=== PATIENT | female | born 1955 | race Two or more races ===

== ENCOUNTER 2023-01-29 00:12 | Inpatient (IN) | payer MEDICAID ==
[~2023-01-29] VITALS: Ht 157.5 cm; Wt 54.5 kg
[2023-01-29] MEDS ORDERED: ONDANSETRON HCL/PF 4 MG/2 ML VIAL ONE (01:48)
[2023-01-29] MEDS ORDERED: MORPHINE SULFATE INJ 4 MG/ML DISP.SYRIN ONE (01:48)
[2023-01-29] MEDS ORDERED: ONDANSETRON HCL/PF 4 MG/2 ML VIAL IVP ONE (02:00)
[2023-01-29] MEDS ORDERED: IV NS 0.9% 1,000 ML BAG IV ONE (02:00)
[2023-01-29] MEDS ORDERED: MORPHINE SULFATE INJ 2 MG/ML DISP.SYRIN IV ONE (02:00)
[2023-01-29 02:05] LABS: BASOPHILS % (AUTO) 0.2 % (0.0-2.0); EOSINOPHILS # (AUTO) 0.1 K/uL (0.0-0.7); EOSINOPHILS % (AUTO) 1.3 % (0.0-6.0); HEMATOCRIT 41 % (33-45); HEMOGLOBIN 13.8 g/dL (11.5-14.8); LYMPHOCYTES # (AUTO) 1.6 K/uL (0.8-4.8); LYMPHOCYTES % (AUTO) 17.8 % (20.0-44.0); MEAN CORPUSCULAR HEMOGLOBIN 30 PG (26.0-33.0); MEAN CORPUSCULAR HGB CONC 34 g/dl (31.0-36.0); MEAN CORPUSCULAR VOLUME 88 fL (82-100); MONOCYTES # (AUTO) 0.6 K/uL (0.1-1.30); MONOCYTES % (AUTO) 6.5 % (2.0-12.0); NEUTROPHILS # (AUTO) 6.8 K/uL (1.8-8.9); NEUTROPHILS % (AUTO) 74.2 % (43.0-81.0); PLATELET COUNT (AUTO) 320 K/uL (150-450); RED BLOOD CELL COUNT(AUTO) 4.69 MIL/uL (4.0-5.2); RED CELL DISTRIBUTION WIDTH 13.3 % (11.5-15.0); WHITE BLOOD COUNT (AUTO) 9.2 K/uL (4.3-11.0)
[2023-01-29 02:19] LABS: INR 1.01 (0.91-1.10); PARTIAL THROMBOPLASTIN TIME 29.7 SEC (24.3-34.3); PROTHROMBIN TIME 10.7 SECS (9.2-11.1)
[2023-01-29 02:20] LABS: CALCIUM, SERUM 9.4 mg/dL (8.5-10.1); CARBON DIOXIDE 25 mmol/L (21-32); CHLORIDE 102 mmol/L (98-107); CREATININE 0.9 mg/dL (0.6-1.3); GLUCOSE 110 mg/dL (74-106); POTASSIUM 3.4 mmol/L (3.5-5.1); SODIUM SERUM 135 mmol/L (136-145); UREA NITROGEN, BLOOD 15 mg/dL (7-18)
[2023-01-29 02:26] LABS: ALANINE AMINOTRANSFERASE 19 U/L (12-78); ALBUMIN 3.8 g/dL (3.4-5.0); ALKALINE PHOSPHATASE 107 U/L (46-116); ASPARTATE AMINOTRANSFERASE 22 U/L (15-37); BILIRUBIN,DIRECT 0.1 mg/dL (0.0-0.2); BILIRUBIN,TOTAL 0.4 mg/dL (0.2-1.0); LIPASE 230 U/L (16-77); TOTAL PROTEIN, SERUM 8.5 g/dL (6.4-8.2)
[2023-01-29 02:45] LABS: APPEARANCE,URINE CLEAR (CLEAR); BILIRUBIN,URINE NEGATIVE (NEGATIVE); BLOOD, URINE NEGATIVE Ery/uL (NEGATIVE); COLOR,URINE YELLOW (YELLOW); KETONES,URINE NEGATIVE (NEGATIVE); LEUKOCYTE ESTERASE ,URINE NEGATIVE (NEGATIVE); NITRITE, URINE NEGATIVE (NEGATIVE); PROTEIN,URINE NEGATIVE (NEGATIVE); UGLUCOSE NEGATIVE (NEGATIVE); UROBILINOGEN,URINE 0.2 EU/dL (0.2)
[2023-01-29] MEDS ORDERED: MORPHINE SULFATE INJ 2 MG/ML DISP.SYRIN IV PRN (09:00)
[2023-01-29] MEDS ORDERED: IV NS 0.9% 1,000 ML IV PRN (09:00)
[2023-01-29] MEDS ORDERED: hydrALAZINE HCL IV 20 MG VIAL IV PRN (09:00)
[2023-01-29] MEDS ORDERED: ENOXAPARIN SODIUM 40 MG/0.4 ML DISP.SYRIN SQ SCH (09:00)
[2023-01-29] MEDS ORDERED: ONDANSETRON HCL/PF 4 MG/2 ML VIAL IVP PRN (09:00)
[2023-01-29] MEDS ORDERED: ACET-868 PO (09:44)
[2023-01-29] MEDS ORDERED: ENOXAPARIN SODIUM 40 MG/0.4 ML DISP.SYRIN SQ ONE (10:19)
[2023-01-29 15:00] VITALS: BP 120/75; TEMP 98.2; O2SAT 98
[2023-01-29 16:00] VITALS: BP 136/72; TEMP 98; O2SAT 97
[2023-01-29] MEDS: ACETAMINOPHEN 325 MG TABLET PO PRN (19:43)
[2023-01-29 20:00] VITALS: BP 121/65; TEMP 98.6; O2SAT 96
[2023-01-30 07:24] LABS: BASOPHILS % (AUTO) 0.7 % (0.0-2.0); EOSINOPHILS # (AUTO) 0.2 K/uL (0.0-0.7); EOSINOPHILS % (AUTO) 4.4 % (0.0-6.0); HEMATOCRIT 37 % (33-45); HEMOGLOBIN 12.5 g/dL (11.5-14.8); LYMPHOCYTES # (AUTO) 1.7 K/uL (0.8-4.8); LYMPHOCYTES % (AUTO) 31.8 % (20.0-44.0); MEAN CORPUSCULAR HEMOGLOBIN 30 PG (26.0-33.0); MEAN CORPUSCULAR HGB CONC 34 g/dl (31.0-36.0); MEAN CORPUSCULAR VOLUME 88 fL (82-100); MONOCYTES # (AUTO) 0.6 K/uL (0.1-1.30); MONOCYTES % (AUTO) 10.3 % (2.0-12.0); NEUTROPHILS # (AUTO) 2.9 K/uL (1.8-8.9); NEUTROPHILS % (AUTO) 52.8 % (43.0-81.0); PLATELET COUNT (AUTO) 288 K/uL (150-450); RED BLOOD CELL COUNT(AUTO) 4.18 MIL/uL (4.0-5.2); RED CELL DISTRIBUTION WIDTH 13.2 % (11.5-15.0); WHITE BLOOD COUNT (AUTO) 5.5 K/uL (4.3-11.0)
[2023-01-30 07:59] LABS: ALBUMIN 2.8 g/dL (3.4-5.0); BILIRUBIN,TOTAL 0.7 mg/dL (0.2-1.0); CALCIUM, SERUM 8.8 mg/dL (8.5-10.1); CREATININE 0.9 mg/dL (0.6-1.3); MAGNESIUM 2.2 mg/dL (1.8-2.4); PHOSPHORUS 3.9 mg/dL (2.5-4.9); POTASSIUM 3.9 mmol/L (3.5-5.1); TOTAL PROTEIN, SERUM 6.7 g/dL (6.4-8.2)
[2023-01-30 09:33] VITALS: BP 128/70; TEMP 98.4; O2SAT 98
[2023-01-30] MEDS ORDERED: ENOXAPARIN SODIUM 40 MG/0.4 ML DISP.SYRIN SQ SCH (10:30)
[2023-01-30] MEDS: ENOXAPARIN SODIUM 60 MG/0.6 ML DISP.SYRIN SQ SCH (11:00)
[2023-01-30] MEDS: CEFEPIME 1 GM in IV D5W 50 ML IV SCH (14:46)
[2023-01-30 16:34] VITALS: BP 134/77; TEMP 97.5; O2SAT 95
[2023-01-30 20:00] VITALS: BP 144/94; TEMP 97.8; O2SAT 97
[2023-01-30] MEDS: ACETAMINOPHEN 325 MG TABLET PO PRN (20:02)
[2023-01-31] MEDS: CEFEPIME 1 GM in IV D5W 50 ML IV SCH ×2 (01:39→14:55)
[2023-01-31] MEDS ORDERED: BUPIVACAINE MPF 0.5% W/EPI INJ 30 ML VIAL ONE (07:52)
[2023-01-31] MEDS ORDERED: LIDOCAINE 1% INJ 50 ML MDV IJ ONE (07:52)
[2023-01-31] MEDS ORDERED: ANESTHESIA TRAY IN PYXIS 1 EA TRAY MC ONE (07:52)
[2023-01-31 08:00] VITALS: BP 122/76; TEMP 98.4; O2SAT 97
[2023-01-31] MEDS ORDERED: FENTANYL PF 100MCG/2ML AMPUL ONE ×2 (09:42→11:48)
[2023-01-31] MEDS ORDERED: ROCURONIUM BROMIDE 50 MG/5 ML ONE (09:42)
[2023-01-31] MEDS ORDERED: CELLULOSE,OXIDIZED 1 EA PACK MC ONE (10:46)
[2023-01-31] MEDS: ENOXAPARIN SODIUM 60 MG/0.6 ML DISP.SYRIN SQ SCH (11:00)
[2023-01-31] MEDS ORDERED: PHYTONADIONE INJ 10 MG/1 ML AMPUL ONE (11:07)
[2023-01-31] MEDS ORDERED: BACITRACIN ZINC OINT (15 GM) 15 GM TUBE TP ONE (11:11)
[2023-01-31] MEDS ORDERED: HYDROMORPHONE INJ 2 MG/ML DISP.SYRIN IV PRN (12:00)
[2023-01-31 16:00] VITALS: BP 135/75; TEMP 98.2; O2SAT 97
[2023-01-31] MEDS ORDERED: IV LR 1000 ML 1,000 ML IV PRN (17:30)
[2023-01-31] MEDS: CELECOXIB 100 MG CAPSULE PO SCH (19:40)
[2023-01-31] MEDS: ACETAMINOPHEN 325 MG TABLET PO PRN (19:40)
[2023-01-31] MEDS: GABAPENTIN 100 MG CAPSULE PO SCH (19:46)
[2023-01-31 20:00] VITALS: BP 135/72; TEMP 98.1; TEMP 99; O2SAT 97
[2023-01-31] MEDS ORDERED: ACETAMINOPHEN 325 MG TABLET PO PRN (20:00)
[2023-02-01] MEDS: CEFEPIME 1 GM in IV D5W 50 ML IV SCH ×2 (02:00→14:56)
[2023-02-01] MEDS: GABAPENTIN 100 MG CAPSULE PO SCH ×2 (03:05→11:23)
[2023-02-01] MEDS: CELECOXIB 100 MG CAPSULE PO SCH (06:22)
[2023-02-01 07:05] LABS: CALCIUM, SERUM 8.8 mg/dL (8.5-10.1); CREATININE 0.8 mg/dL (0.6-1.3); PHOSPHORUS 3.4 mg/dL (2.5-4.9); POTASSIUM 3.4 mmol/L (3.5-5.1)
[2023-02-01 07:14] LABS: BASOPHILS % (AUTO) 0.4 % (0.0-2.0); EOSINOPHILS # (AUTO) 0.2 K/uL (0.0-0.7); HEMATOCRIT 36 % (33-45); HEMOGLOBIN 12.1 g/dL (11.5-14.8); LYMPHOCYTES # (AUTO) 1.6 K/uL (0.8-4.8); LYMPHOCYTES % (AUTO) 20.8 % (20.0-44.0); MEAN CORPUSCULAR HEMOGLOBIN 29 PG (26.0-33.0); MEAN CORPUSCULAR HGB CONC 33 g/dl (31.0-36.0); MEAN CORPUSCULAR VOLUME 88 fL (82-100); MONOCYTES # (AUTO) 0.8 K/uL (0.1-1.30); MONOCYTES % (AUTO) 9.8 % (2.0-12.0); NEUTROPHILS # (AUTO) 5.2 K/uL (1.8-8.9); PLATELET COUNT (AUTO) 278 K/uL (150-450); RED BLOOD CELL COUNT(AUTO) 4.14 MIL/uL (4.0-5.2); WHITE BLOOD COUNT (AUTO) 7.7 K/uL (4.3-11.0)
[2023-02-01 07:30] VITALS: BP 126/75; TEMP 98.2; O2SAT 96
[2023-02-01] MEDS ORDERED: POTASSIUM CHLORIDE 20 MEQ TAB.PRT.SR PO ONE (09:30)
[2023-02-01 16:00] VITALS: BP 124/80; TEMP 98.7; O2SAT 97
[2023-02-01] MEDS ORDERED: IBUP-1958 PO (16:42)
== END 2023-02-01 18:00 | disposition home or self-care (01) | DRG 263 ==
LOC: ER 00:15 → MED 14:10
PROVIDERS: ADMIT Internal Medicine; ATTEND Internal Medicine
PROC: 0FT44ZZ Resection of Gallbladder, Percutaneous Endoscopic Approach (ICD-10-PCS; principal; 2023-01-31)
PROC: 0FN44ZZ Release Gallbladder, Percutaneous Endoscopic Approach (ICD-10-PCS; 2023-01-31)
DX: K81.0 Acute cholecystitis (principal); K82.0 Obstruction of gallbladder; K82.1 Hydrops of gallbladder; K82.8 Other specified diseases of gallbladder; Z98.891 History of uterine scar from previous surgery; R74.8 Abnormal levels of other serum enzymes
CPT/HCPCS: 36415; 71045-TC; 76705-TC; 78226; 80048-TC; 80053-TC; 80076-TC; 83605-TC; 83690-TC; 83735-TC; 84100-TC; 84484-TC; 85025-TC; 85730-TC; 86850-TC; 88304-TC; A4223; A6209; A6403; A9537; G0378; J0692; J1650; J2270; J2405; J2704; J3010; J3430; J3490; J7030; J7060; J7070; J7120